=== PATIENT | male | born 2005 | race Caucasian/White ===

== ENCOUNTER 2025-08-06 08:47 | Observation (INO) | payer OTHER ==
[2025-08-06 09:27] LABS: #Basophils 0.07 10x3/uL (0.0-0.2); #Eosinophils 0.07 10x3/uL (0.0-0.7); #Monocytes 0.39 10x3/uL (0.11-0.59); #Neutrophils 5.29 10x3/uL (1.40-6.50); %Basophils 0.9 % (0.0-1.0); %Eosinophils 0.9 % (0.0-10.0); %Lymphocytes 21.6 % (28.0-48.0); %Monocytes 5.2 % (0.0-4.0); %Neutrophils 71.0 % (31.0-61.0); Hematocrit 45.0 % (42.0-52.0); Hemoglobin 13.9 g/dL (14.0-18.0); Mean Corpuscular Hemoglobin 26.5 pg (25.0-35.0); Mean Corpuscular Volume 85.7 fL (78.0-98.0); Platelet Count 267 10x3/uL (130-400); Red Blood Cell (RBC) Count 5.25 mill/uL (4.00-5.20); White Blood Cell (WBC) Count 7.46 10x3/uL (4.8-10.8)
[2025-08-06 09:39] LABS: Acetaminophen Less than 10 mcg/mL (Less than 10); Magnesium 1.8 mg/dL (1.7-2.2); Salicylate Less than 8.0 mg/dL (Less than 8.0)
[2025-08-06 10:02] LABS: Thyroid Stimulating Hormone 1.2536 uIU/mL (0.35-4.94)
[2025-08-06 10:09] LABS: ALT (SGPT) 13 U/L (Less than 45); AST (SGOT) 20 U/L (11-34); Albumin 4.1 g/dL (3.1-4.5); Alkaline Phosphatase 89 U/L (50-130); Anion Gap 14 mmol/L (10-20); BUN (Urea Nitrogen) 13 mg/dL (8.9-20.6); Bilirubin, Total 0.5 mg/dL (0.3-1.2); Calc. Creatinine Clearance 0 mL/min (70-130); Calcium 9.2 mg/dL (7.8-10.44); Carbon Dioxide 26 mmol/L (22-29); Chloride 108 mmol/L (98-107); Globulin 3.3 g/dL (2.4-3.5); Glucose 99 mg/dL (70-105); Potassium 3.6 mmol/L (3.5-5.1); Sodium 144 mmol/L (136-145)
[2025-08-06 10:11] LABS: CK (CPK) 86 U/L (30-200)
[2025-08-06 11:04] LABS: Free T4 (Free Thyroxine) 1.1 ng/dL (0.70-1.48)
[2025-08-06 12:05] LABS: Bacteria/HPF None Seen HPF (None Seen); CAUTI Indications for Culture Fever or rigors; Glucose, Urine (Dipstick) Normal (Negative); Leukocyte 250 Leu/uL (Negative); Protein, Urine (Dipstick) Negative (Neg-Trace); RBC/HPF None Seen HPF (0-3); Specific Gravity, Urine 1.016 (1.002-1.036); WBC/HPF 0-3 HPF (0-3)
[2025-08-06 12:07] LABS: Urine Culture Reflex No No
[2025-08-06 12:10] LABS: Cocaine Metabolite Screen Negative (Negative); THC/Cannabinoid Screen PRELIM POSITIVE (Negative); Tricyclic Screen Negative (Negative)
[2025-08-06] MEDS ORDERED: Acetaminophen 500 MG TAB PO PRN (17:13)
[2025-08-06] MEDS ORDERED: Ondansetron PF 4 MG/2 ML Vial IVP PRN (17:13)
[2025-08-06 17:16] VITALS: BMI 18.8
[2025-08-06] MEDS ORDERED: Melatonin 3 MG TAB PO PRN (20:39)
[2025-08-06] MEDS: Famotidine 20 MG TAB PO SCH (20:56)
[2025-08-07 05:10] LABS: #Basophils 0.06 10x3/uL (0.0-0.2); #Eosinophils 0.34 10x3/uL (0.0-0.7); #Monocytes 0.64 10x3/uL (0.11-0.59); #Neutrophils 4.48 10x3/uL (1.40-6.50); %Basophils 0.8 % (0.0-1.0); %Eosinophils 4.3 % (0.0-10.0); %Lymphocytes 30.7 % (28.0-48.0); %Monocytes 8.0 % (0.0-4.0); %Neutrophils 55.9 % (31.0-61.0); Hematocrit 40.4 % (42.0-52.0); Hemoglobin 12.8 g/dL (14.0-18.0); Mean Corpuscular Hemoglobin 27.2 pg (25.0-35.0); Mean Corpuscular Volume 86.0 fL (78.0-98.0); Platelet Count 267 10x3/uL (130-400); Red Blood Cell (RBC) Count 4.70 mill/uL (4.00-5.20); White Blood Cell (WBC) Count 7.99 10x3/uL (4.8-10.8)
[2025-08-07 05:16] LABS: ALT (SGPT) 14 U/L (Less than 45); AST (SGOT) 18 U/L (11-34); Albumin 3.7 g/dL (3.1-4.5); Alkaline Phosphatase 79 U/L (50-130); Anion Gap 10 mmol/L (10-20); BUN (Urea Nitrogen) 14 mg/dL (8.9-20.6); Bilirubin, Total 0.3 mg/dL (0.3-1.2); Calc. Creatinine Clearance 113 mL/min (70-130); Calcium 9.1 mg/dL (7.8-10.44); Carbon Dioxide 24 mmol/L (22-29); Chloride 111 mmol/L (98-107); Globulin 2.7 g/dL (2.4-3.5); Glucose 91 mg/dL (70-105); Potassium 4.3 mmol/L (3.5-5.1); Sodium 141 mmol/L (136-145)
[2025-08-07 12:30] VITALS: BP 128/66; TEMP 98.3
== END 2025-08-07 14:58 | disposition home or self-care (01) ==
LOC: ERS 08:47 → ERHOLD 11:43 → 2NO 17:00
PROVIDERS: ADMIT Family Medicine; ATTEND Internal Medicine
DX: T43.222A Poisoning by selective serotonin reuptake inhibitors, intentional self-harm, initial encounter (principal); F41.8 Other specified anxiety disorders; F12.929 Cannabis use, unspecified with intoxication, unspecified; G90.81 Serotonin syndrome; Z79.899 Other long term (current) drug therapy
CPT/HCPCS: 36415; 80053; 80306; 80307; 81001; 82550; 83735; 84439; 84443; 85025; 93005; 96374; 96376; G0378; J2060; J7030